=== PATIENT | female | born 1995 ===

== ENCOUNTER 2023-04-11 09:11 | Emergency (ER) | payer OTHER, SELFPAY ==
--- NOTE | ~2023-04-11 | XR_ITS ---
EXAMINATION: XR SHOULDER, LEFT CLINICAL INFORMATION: Trauma COMPARISON: None available. TECHNIQUE: AP external rotation, Grashey, scapular Y, and axillary views of the left shoulder. FINDINGS: There is no evidence of acute fracture or dislocation of the left shoulder. Glenohumeral joint appears unremarkable. No calcific tendinitis. Acromioclavicular joint appears unremarkable. No widening of the coracoclavicular space is seen. XR/XR shoulder LT min 2V IMPRESSION: No bony abnormality of the left shoulder identified.
[2023-04-11 09:26] VITALS: BP 158/96; PULSE 79; RESP 18; TEMP 36.3; O2SAT 97; BMI 46.3
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
--- OUTSIDE RECORDS SUMMARY | 2023-04-11 09:53 | XMS_ITS | Continuity of Care Document ---
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 Discharge Disposition: A-D/C Home Attending Physician: Constantino Gilmore MD Admitting Physician: Constantino Gilmore MD Referring Physician: Not on Staff, Referring MD Allergies, Adverse Reactions, Alerts Substance Reaction Severity Status amoxicillin Active Shrimp Active Medications ibuprofen 600 mg oral tablet 600 mg, 1, tablet, By Mouth, Every 6 hours, # 30 tablet, Refills 0, Tot. Refills 0, Maintenance, 08/03/20 14:31:00 EDT, Route to Pharmacy Electronically, [id number] Start Date: 08/03/20 Status: Ordered Results Radiology Reports * Exam Date Time Procedure Performing Provider Status 08/03/20 2:04 PM Hand Min 3 Views Right Arash Almendarez; Auth (Verified) Notes: (Hand Min 3 Views Right) Reason For Exam: Pain RESULT: Hand Min 3 Views Right PROCEDURE: Hand Min 3 Views Right CLINICAL INDICATION: 24 years old Female with hand pain since this morning. No trauma. Sent here from work to get checked out . COMPARISONS: None. FINDINGS: Bones and joints: No fracture or dislocation. Joint spaces are normal. Soft Tissues: Regional soft tissues are unremarkable. No evidence of radiopaque foreign body. IMPRESSION: 1. No evidence of acute bony injuries. Thank you for allowing me to participate in the care of this patient. WSN: [id number] Ordering Physician: Tabby Nunez Dictated By: Valarie Ibarra MD Dictated Date/Time: 08/03/20 2:10 pm Reviewed By: Valarie Ibarra MD Signed By: Valarie Ibarra MD Signed Date/Time: 08/03/20 2:10 pm Transcribed By: CHRISTELLE Transcribed Date/Time: 08/03/20 2:06 pm Vital Signs Most recent to oldest [Reference Range]: 1 2 Oxygen Saturation [94-100 %] 100 % (08/03/20 1:25 PM) 99 % (08/03/20 11:36 AM) Pulse Rate [55-90 bpm] 84 bpm (08/03/20 1:25 PM) 71 bpm (08/03/20 11:36 AM) Blood Pressure [90-138/55-84 mm Hg] 125/ 75mm Hg (08/03/20 1:25 PM) 139/87mm Hg *H* (08/03/20 11:36 AM) Respiratory Rate [16-30 br/min] 19 br/mi n (08/03/20 1:25 PM) 18 br/min (08/03/20 11:36 AM) Temperature [96.8-100.4 DegF] 98.5 DegF (08/03/20 11:36 AM) Mode of Delivery (Oxygen) Room air (08/03/20 1:25 PM) Room air (08/03/20 11:36 AM) Blood pressure sites Arm, left (08/03/20 1:25 PM) Arm, right (08/03/20 11:36 AM) Temperature Route Oral (08/03/20 11:36 AM) Social History Social History Type Response Smoking Status Never smoker entered on: 01/11/18 Sex
== END 2023-04-11 10:25 | disposition home or self-care (01) ==
PROVIDERS: Emergency Provider Student in an Organized Health Care Education/Training Program
DX: S39.012A Strain of muscle, fascia and tendon of lower back, initial encounter (principal); S40.012A Contusion of left shoulder, initial encounter; M25.512 Pain in left shoulder; V43.52XA Car driver injured in collision with other type car in traffic accident, initial encounter; Y93.9 Activity, unspecified; Y92.410 Unspecified street and highway as the place of occurrence of the external cause; Y99.9 Unspecified external cause status
CPT/HCPCS: 73030; 99282; 99283

== ENCOUNTER 2023-08-09 18:56 | Emergency (ER) | payer OTHER, SELFPAY ==
--- NOTE | ~2023-08-09 | CT_ITS ---
EXAMINATION: CT ABDOMEN AND PELVIS WITHOUT CONTRAST CLINICAL INFORMATION: Flank pain. History of kidney stones. COMPARISON: None available. TECHNIQUE: Multidetector volumetric imaging was performed from the superior aspect of the liver through the pubic symphysis. Sagittal and coronal reformatted images were obtained on the technologist's workstation. This CT examination was performed using dose optimization techniques as appropriate, variously including the following: *Automated exposure control *Adjustment of mA and/or kV according to patient size (this includes techniques or standardized protocols for targeted exams where dose is matched to indication/reason for exam; i.e. extremities or head) *Use of iterative reconstruction technique DLP: 1358 mGy-cm FINDINGS: LUNG BASES: Minimal atelectatic changes seen right middle lobe and lingula. Heart size is normal. LIVER, GALLBLADDER, AND BILIARY TREE: The liver is normal in size, shape, and attenuation. No focal hepatic lesion or biliary ductal dilatation is present. The gallbladder is unremarkable with no evidence of radiopaque gallstones, gallbladder wall thickening, or obvious pericholecystic inflammatory changes. PANCREAS: Unremarkable. SPLEEN: Unremarkable. ADRENAL GLANDS: Unremarkable. KIDNEYS AND URETERS: The kidneys are normal in size, shape, and attenuation. No hydronephrosis, hydroureter, or calculi seen. No perinephric stranding. There is a 1.9 cm hypodense lesion upper pole left kidney measuring -89 Hounsfield units likely angiomyolipoma. 2 small calcifications or calculi seen in the upper pole left kidney. There is 2 mm radiopaque calculi in proximal ureter right kidney with minimal hydronephrosis. 2 mm radiopaque nonobstructing calculi seen in lower pole right kidney. The right kidney measures 14 cm in length and left kidney measures 11 cm in length. BLADDER: Bladder is nondistended and appears unremarkable.. GASTROINTESTINAL TRACT: The stomach is nondistended and appears unremarkable. The small bowel loops are normal caliber. Minimal stool seen in the right colon. There is no distention. There is nonspecific haziness in the mid mesentery. There are numerous small perivascular mesenteric lymph nodes. ABDOMINAL WALL: No significant hernia is appreciated. LYMPH NODES: There are numerous small bowel mesentery, para-aortic retroperitoneal lymph nodes. Some of the lymph nodes are abnormal size measuring 1.8 x 8 mm on axial slice 42/3. VASCULAR: Unremarkable. PELVIC VISCERA: The uterus is anteverted and appears unremarkable. There is a 3.8 x 3.9 cm simple cyst left ovary. No follow-up needed. There is no free fluid. OSSEOUS STRUCTURES: No aggressive lytic or sclerotic process seen CT/CT abdomen pelvis wo IV con IMPRESSION: 1. 2 mm obstructive radiopaque calculi proximal right ureter with minimal hydronephrosis. 2. There are bilateral nonobstructive radiopaque renal calculi. 3. 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 4. There are numerous small lymph nodes in the small bowel mesentery, para-aortic in retroperitoneum and in the mesentery. There is nonspecific haziness in the mid mesentery. 5. Simple left ovarian cyst. No follow-up needed. Fleischner guidelines were followed.
[2023-08-09 19:34] VITALS: BP 156/92; PULSE 100; RESP 18; TEMP 37; O2SAT 96; BMI 49.8
[2023-08-09 20:16] LABS: MANUAL DIFF FLAG NO
[2023-08-09 20:19] LABS: Basophils Percent Auto 0.3 % (0-2); Eosinophils Absolute Auto 0.3 X10*3/uL (0.0-0.4); Hematocrit 36.9 % (37.0-47.0); Hemoglobin 10.8 g/dl (12.0-16.0); Imm Gran Abs Auto 0.12 X10*3/uL (0.00-0.03); Lymphocytes Absolute Auto 1.3 X10*3/uL (1.2-4.9); Lymphocytes Percent Auto 10.2 % (20-40); Mean Corpuscular HGB Conc 29.3 g/dl (31.0-35.0); Mean Corpuscular Hemoglobin 19.6 pg (27.0-33.0); Mean Corpuscular Volume 66.8 fL (80.0-98.0); Mean Platelet Volume 8.6 fL (9.4-12.3); Monocytes Absolute Auto 0.7 X10*3/uL (0.1-1.2); Neutrophils Absolute Auto 9.9 x10*3/uL (2.0-8.3); Neutrophils Percent Auto 80.5 % (45-73); Platelet Count 505 X10*3/uL (160-400); Red Blood Count 5.52 X10*6/uL (4.20-5.50); White Blood Count 12.3 X10*3/uL (4.8-10.8)
--- NOTE | 2023-08-09 20:28 | ED.GENADULT ---
HPI - General Adult General Chief complaint: Abdominal Pain Stated complaint: Rightside pain/nausea/ light headed Time Seen by Provider: 08/09/23 20:12 Source: patient, RN notes reviewed and old records reviewed Mode of arrival: ambulatory Limitations: no limitations History of Present Illness HPI narrative: 27-year-old female presents for evaluation of right flank pain. Patient reports that her symptoms started around 8:00 a.m. this morning. She reports the pain is intermittent, radiates from right flank to her right lower abdomen Currently her pain is mild, 3/10 but does become a 10/10 at its worst. She reports that she was diagnosed with kidney stones about 7 months ago and this feels similar She reports that she took a test at home 3 days ago which was negative Denies any burning with urination And no fevers or chills The patient took some Tylenol prior to arrival She reports 1 episode of vomiting in the waiting room Related Data Previous Rx's Medication Instructions Recorded methocarbamol 750 mg tablet 750 mg PO TID PRN muscle spasm #20 04/11/23 tabs naproxen 500 mg tablet 500 mg PO BID PRN pain #20 tabs 04/11/23 cefpodoxime 200 mg tablet 200 mg PO BID #6 tabs 08/09/23 ondansetron 4 mg disintegrating 4 mg PO Q8H PRN nausea and 08/09/23 tablet vomiting #20 tabs tamsulosin 0.4 mg capsule (Flomax) 0.4 mg PO DAILY #7 caps 08/09/23 tramadol 50 mg tablet 50 mg PO TID PRN severe pain 08/09/23 (scale score 7-10) #12 tabs Allergies Allergy/AdvReac Type Severity Reaction Status Date / Time amoxicillin [AMOXICILLIN] Allergy Unknown SWELLING Verified 08/09/23 19:34 shrimp [SHRIMP] Allergy Unknown ANAPHYLAXIS Verified 08/09/23 19:34 Review of Systems Constitutional: Constitutional: Denies chills and Denies fever(s) Cardiovascular: Cardiovascular: Denies chest pain and Denies dyspnea Respiratory: Respiratory: Denies cough and Denies dyspnea Gastrointestinal: Gastrointestinal: Reports abdominal pain, Reports nausea and Reports vomiting Genitourinary: Genitourinary: Denies difficulty voiding Musculoskeletal: Musculoskeletal: Reports back pain Integumentary/Breasts: Skin/Breast: Denies rash PMFSH Social History Social History Alcohol intake: current Alcohol intake frequency: holidays/special occasions only Smoked in Last 30 Days: Yes Use of substances other than those prescribed or required for medical reasons: No Advance Directives: No Advance Directives Information Provided: No Patient : No Physical Exam ED Vital Signs: Vital Signs - 24 hr 08/09/23 19:34 08/09/23 22:21 Temperature 98.6 F Pulse Rate 100 91 Respiratory Rate 18 Blood Pressure 156/92 H 109/55 L Pulse Oximetry 96 96 Oxygen Delivery Method Room Air Room Air BMI result Body Mass Index 49.8 Const General: healthy appearing, comfortable, no acute distress, alert and awake Nutritional Appearance: well nourished Orientation/consciousness: patient oriented x3 HENMT Head: Yes normocephalic and Yes atraumatic Eyes Eyelids: Yes eyelids normal Conjunctivae: conjunctivae normal Sclerae: sclerae normal Corneas: corneas normal Pupils: Equal, round and reactive pupils present EOM: EOMs intact bilaterally Neck Neck: Yes full ROM Resp Effort & Inspection: normal respiratory effort, able to speak in complete sentences and not labored GI Inspection: No distended Palpation (GI): Soft to palpation, not firm, nontender, no guarding and not rigid General: Yes CVA tenderness (On right only) Back/Spine/Pelvis Back: CVA tenderness (On right only) Skin General skin exam: elasticity normal Neuro General: patient oriented x3 Cranial nerves: Yes Equal, round and reactive pupils present and Yes Bilaterally intact EOM present Cognition (Neuro): normal cognition Extrem Other: Moving all extremities well without any obvious deformities Course Reevaluation(s) Reevaluation #1: Patient's CT scan shows a 2 mm proximal ureter stone. Normal renal function. Patient has a mild leukocytosis which is likely reactive. Still awaiting UA Time: 23:22 Reevaluation #2: Patient's urine shows over 50 white cells with 1+ bacteria and moderate esterase, will cover with cefpodoxime Time: 23:28 Medications Administered Discontinued Medications Generic Name Dose Route Start Last Admin Trade Name Freq PRN Reason Stop Dose Admin Sodium Chloride 1,000 mls @ 999 mls/hr 08/09/23 21:00 08/09/23 22:29 Ns IV 08/09/23 22:00 Infused .Q1H1M NATALIE Infusion Ketorolac Tromethamine 30 mg 08/09/23 20:49 08/09/23 20:56 Ketorolac Tromethamine 30 Mg/Ml Vial IVPUSH 08/09/23 20:50 30 mg ONCE ONE Administration Ondansetron HCl 4 mg 08/09/23 20:49 08/09/23 20:56 Ondansetron Hcl 4 Mg/2 Ml Vial IVPUSH 08/09/23 20:50 4 mg ONCE ONE Administration Medical Decision Making Medical Decision Making [facility] Narrative: 27-year-old female presents for evaluation of right flank pain that started this morning. The pain waxes and wanes, history exam consistent with obstructive uropathy. Plan for labs, UA, CT scan the abdomen pelvis. Patient declines analgesia at this time. Her vital signs are stable Differential Diagnosis Differential Diagnoses: The differential diagnosis associated with the presentation includes Obstructive uropathy Pyelonephritis UTI Muscle strain Constipation Lab Data [facility] Lab Attestation statement: I reviewed the patient's lab results. Mild leukocytosis to 12.3. Mild chronic anemia with a hemoglobin of 10.8 and hematocrit of 36.9. Platelets elevated to 505k. No electrolyte abnormalities. Normal renal function. Mild transaminitis. Unclear significance at this time 08/09/23 20:12 08/09/23 20:12 Labs: Lab Results 08/09/23 08/09/23 Range/Units 20:12 23:13 WBC 12.3 H (4.8-10.8) X10*3/uL RBC 5.52 H (4.20-5.50) X10*6/uL Hgb 10.8 L (12.0-16.0) g/dl Hct 36.9 L (37.0-47.0) % MCV 66.8 L (80.0-98.0) fL MCH 19.6 L (27.0-33.0) pg MCHC 29.3 L (31.0-35.0) g/dl RDW 19.0 H (11.0-16.0) % Plt Count 505 H (160-400) X10*3/uL MPV 8.6 L (9.4-12.3) fL Immature Gran % (Auto) 1.0 H (0.0-0.4) % Neut % (Auto) 80.5 H (45-73) % Lymph % (Auto) 10.2 L (20-40) % Whiteside % (Auto) 6.0 (2-11) % Eos % (Auto) 2.0 (0-4) % Baso % (Auto) 0.3 (0-2) % Lymph # (Auto) 1.3 (1.2-4.9) X10*3/uL Whiteside # (Auto) 0.7 (0.1-1.2) X10*3/uL Eos # (Auto) 0.3 (0.0-0.4) X10*3/uL Baso # (Auto) 0.0 (0.0-0.2) X10*3/uL Abs Immat Gran (auto) 0.12 H (0.00-0.03) X10*3/uL Absolute Neuts (auto) 9.9 H (2.0-8.3) x10*3/uL Absolute Nucleated RBC 0.000 (0.0-0.012) X10*3/uL Nucleated RBC % (auto) 0.0 (0.0-0.2) /100WBC Sodium 139 (135-145) mmol/L Potassium 4.7 (3.3-5.1) mmol/L Chloride 105 (96-108) mmol/L Carbon Dioxide 24 (22-29) mmol/L Anion Gap 15 (12-20) BUN 15 (9-16) mg/dL Creatinine 1.30 (0.5-1.4) mg/dL Estim Creat Clear Calc 87.6 Estimated GFR 49 Random Glucose 150 H (60-115) mg/dL Calcium 9.6 (8.4-10.2) mg/dL Total Bilirubin 0.4 (0.0-1.0) mg/dL Direct Bilirubin 0.1 (0.0-0.5) mg/dL AST 43 H (5-31) U/L ALT 52 H (0-31) U/L Alkaline Phosphatase 87 (39-117) U/L Total Protein 8.2 H (6.5-8.0) g/dL Albumin 4.1 (3.5-5.0) g/dL Lipase 14 (8-78) U/L Beta HCG, Quant < 2 mIU/mL Urine Color Yellow Urine Appearance Cloudy Urine pH 6.5 (5.0-9.0) Ur Specific Gate 1.025 (1.005-1.025) Urine Protein 30 (1+) H (Neg-Trace) mg/dL Urine Glucose (UA) Negative (Negative) mg/dL Urine Ketones Negative (Negative) mg/dL Urine Blood Small (1+) H (Negative) Urine Nitrite Negative (Negative) Ur Leukocyte Esterase Moderate (2+) H (Negative) Urine RBC 11-20 H (0-2) /HPF Urine WBC >50 H (0-5) /HPF Ur Squamous Epith Cells 6-10 (0-2) /HPF Urine Bacteria 1+ (None Seen) Hyaline Casts 0-2 (0-2) /LPF Independent Interpretation I performed an independent interpretation of an: CT Scan (2 mm proximal ureter stone, mild hydronephrosis) Radiology Impression Discussion of test interpretation with radiology: I have reviewed the radiologist's reading. (3 mm obstructive uropathy in the proximal ureter with mild hydronephrosis) Discharge Plan Discharge Clinical Impression: Obstructive uropathy Patient Disposition: Home, Self-Care Instructions: Kidney Stones (ED) Additional Instructions: Your CT scan showed a very small kidney stone just outside your right kidney Is 2 mm and should therefore be able to pass on its own You may use Tylenol as needed for pain. You may use tramadol for more severe breakthrough pain This may make you sleepy, do not drink alcohol or drive after taking it Take Flomax daily Take the antibiotic as prescribed Return for new or worsening symptoms especially fever Prescriptions: New tamsulosin [Flomax] 0.4 mg capsule 0.4 mg PO DAILY Qty: 7 0RF tramadol 50 mg tablet 50 mg PO TID PRN (Reason: severe pain (scale score 7-10)) Qty: 12 0RF ondansetron 4 mg tablet,disintegrating 4 mg PO Q8H PRN (Reason: nausea and vomiting) Qty: 20 0RF cefpodoxime 200 mg tablet 200 mg PO BID Qty: 6 0RF Rx Instructions: must administer with a meal/food No Action naproxen 500 mg tablet 500 mg PO BID PRN (Reason: pain) Qty: 20 0RF methocarbamol 750 mg tablet 750 mg PO TID PRN (Reason: muscle spasm) Qty: 20 0RF
[2023-08-09 20:30] LABS: Alanine Aminotransferase 52 U/L (0-31); Albumin Level 4.1 g/dL (3.5-5.0); Alkaline Phosphatase 87 U/L (39-117); Anion Gap 15 (12-20); Aspartate Amino Transferase 43 U/L (5-31); Bilirubin Direct 0.1 mg/dL (0.0-0.5); Bilirubin Total 0.4 mg/dL (0.0-1.0); Blood Urea Nitrogen 15 mg/dL (9-16); Calcium 9.6 mg/dL (8.4-10.2); Carbon Dioxide 24 mmol/L (22-29); Chloride 105 mmol/L (96-108); Creatinine Clr Calc Pharmacy 87.6; Estimated Glomerular Filt Rate 49; Glucose Random 150 mg/dL (60-115); Lipase 14 U/L (8-78); Potassium 4.7 mmol/L (3.3-5.1); Sodium 139 mmol/L (135-145); Total Protein 8.2 g/dL (6.5-8.0)
[2023-08-09 20:44] LABS: HCG Quantitative < 2 mIU/mL
[2023-08-09] MEDS: ondansetron HCL 4 MG/2 ML VIAL IVPUSH (20:56)
[2023-08-09] MEDS: Ketorolac Tromethamine 30 MG/ML VIAL IVPUSH (20:56)
[2023-08-09] MEDS: 0.9 % Sodium Chloride 1,000 ML 999 ML IV (20:58)
[2023-08-09 22:21] VITALS: BP 109/55; PULSE 91; O2SAT 96
[2023-08-09 23:18] LABS: Appearance Urine Cloudy; Color Urine Yellow; Glucose Urine UA Negative (Negative); Leukocyte Esterase Urine Moderate (2+) (Negative); Nitrite Urine Negative (Negative); PH 6.5 (5.0-9.0); Specific Gravity - Urine 1.025 (1.005-1.025); UMIC TRIGGER UACC YES; Urine Blood Small (1+) (Negative); Urine Ketones Negative (Negative); Urine Protein 30 (1+) mg/dL (Neg-Trace)
[2023-08-09 23:23] LABS: Bacteria Urine 1+ (None Seen); Hyaline Casts Urine 0-2 /LPF (0-2); UACC Culture Trigger YES; WBC Urine >50 /HPF (0-5)
[2023-08-10 00:14] VITALS: BP 117/63; PULSE 87; RESP 16; TEMP 37; O2SAT 96
== END 2023-08-10 00:16 | disposition home or self-care (01) ==
PROVIDERS: Physician Assistant Medical; Emergency Provider Internal Medicine
DX: N13.2 Hydronephrosis with renal and ureteral calculous obstruction (principal); E66.9 Obesity, unspecified; Z68.42 Body mass index [BMI] 45.0-49.9, adult; Z79.899 Other long term (current) drug therapy
CPT/HCPCS: 36415; 74176; 80048; 80076; 81001; 83690; 84702; 85025; 87086; 87088; 87186; 96361; 96374; 96375; 99284; J1885; J2405

== ENCOUNTER 2023-09-30 00:02 | Emergency (ER) | payer OTHER, SELFPAY ==
--- NOTE | ~2023-09-30 | XR_ITS ---
EXAMINATION: XR CHEST CLINICAL INFORMATION: Cough. COMPARISON: Chest x-ray January 17, 2009. TECHNIQUE: Frontal view of the chest was obtained. 0018 hours FINDINGS: Subtle hazy airspace opacity in the mid right upper lung concerning for pneumonia. Linear streaky opacities at left lung base consistent with atelectasis. Lung volume is low. No pleural effusion. Cardiac and mediastinal contours are normal. Heart size normal. XR/XR chest 1V IMPRESSION: Subtle hazy airspace opacity in the mid right upper lung concerning for pneumonia.
[2023-09-30 00:03] VITALS: BP 146/96; PULSE 117; RESP 20; TEMP 36.6; O2SAT 94; BMI 51.7
[2023-09-30 00:59] LABS: IDNOW Serial# 58CA691E; Strep A Nucleic Acid Negative (Negative)
[2023-09-30 01:02] LABS: Alanine Aminotransferase 64 U/L (0-31); Albumin Level 3.8 g/dL (3.5-5.0); Alkaline Phosphatase 86 U/L (39-117); Anion Gap 15 (12-20); Aspartate Amino Transferase 54 U/L (5-31); Bilirubin Total 0.2 mg/dL (0.0-1.0); Blood Urea Nitrogen 13 mg/dL (9-16); Calcium 9.3 mg/dL (8.4-10.2); Carbon Dioxide 22 mmol/L (22-29); Chloride 105 mmol/L (96-108); Creatinine Clr Calc Pharmacy 113.3; Estimated Glomerular Filt Rate > 60; Glucose Random 205 mg/dL (60-115); Potassium 4.1 mmol/L (3.3-5.1); Sodium 138 mmol/L (135-145); Total Protein 7.9 g/dL (6.5-8.0)
[2023-09-30 01:07] LABS: IDNOW Serial# 16C4AD1C; Influenza A Negative (Negative); Influenza B2 Negative (Negative)
[2023-09-30 01:12] LABS: COVID-19 Test Negative (Negative); IDNOW Serial# 58CA691E
[2023-09-30 01:18] LABS: MANUAL DIFF FLAG NO
[2023-09-30 01:19] LABS: Basophils Absolute Auto 0.1 X10*3/uL (0.0-0.2); Basophils Percent Auto 0.7 % (0-2); Eosinophils Absolute Auto 0.7 X10*3/uL (0.0-0.4); Eosinophils Percent Auto 7.8 % (0-4); Hematocrit 35.7 % (37.0-47.0); Hemoglobin 10.4 g/dl (12.0-16.0); Imm Gran Abs Auto 0.14 X10*3/uL (0.00-0.03); Imm Gran Pct Auto 1.6 % (0.0-0.4); Lymphocytes Percent Auto 23.1 % (20-40); Mean Corpuscular HGB Conc 29.1 g/dl (31.0-35.0); Mean Corpuscular Hemoglobin 19.7 pg (27.0-33.0); Mean Corpuscular Volume 67.7 fL (80.0-98.0); Mean Platelet Volume 8.9 fL (9.4-12.3); Monocytes Absolute Auto 0.5 X10*3/uL (0.1-1.2); Monocytes Percent Auto 5.4 % (2-11); Neutrophils Absolute Auto 5.3 x10*3/uL (2.0-8.3); Neutrophils Percent Auto 61.4 % (45-73); Platelet Count 512 X10*3/uL (160-400); Red Blood Count 5.27 X10*6/uL (4.20-5.50); Red Cell Distribution Width 19.7 % (11.0-16.0); White Blood Count 8.7 X10*3/uL (4.8-10.8)
[2023-09-30] MEDS: Doxycycline Monohydrate 100 MG CAPSULE PO (01:25)
[2023-09-30 01:28] VITALS: O2SAT 97
[2023-09-30 01:32] VITALS: BP 139/88; PULSE 100; RESP 20; TEMP 36.8; O2SAT 95
[2023-09-30 01:46] LABS: Lactic Acid 1.9 mmol/L (0.5-2.0)
--- NOTE | 2023-09-30 01:58 | ED_ITS ---
HPI - General Adult General Chief complaint: Upper Respiratory Symptoms Stated complaint: Pneumonia? Time Seen by Provider: 09/30/23 01:58 EDT Source: patient Mode of arrival: ambulatory Limitations: no limitations History of Present Illness HPI narrative: Patient is a 28 year old assigned female at with no reported medical history presenting to the emergency department today with a cough and headache for 5 days. Patient states that over the last 5 days she has had a cough and a headache. Patient denies any dizziness, lightheadedness, abdominal pain, nausea, vomiting, fever, chills, blurry vision, double vision, loss of vision, chest pain, difficulty breathing, shortness of breath, back pain, night sweats, pain with urination, increased urinary frequency, increased urinary urgency, blood in her urine or stool, syncope or a near syncopal episode, recent trauma or falls, bowel incontinence, bladder incontinence, bowel retention, bladder retention, or any other complaints at this time. Onset (ago): day(s) (5) Severity: mild Severity scale (1-10): 3 Relieving factors: none Exacerbating factors: none Associated symptoms: cough Treatments prior to arrival: none Related Data Previous Rx's Medication Instructions Recorded methocarbamol 750 mg tablet 750 mg PO TID PRN muscle spasm #20 04/11/23 tabs naproxen 500 mg tablet 500 mg PO BID PRN pain #20 tabs 04/11/23 ondansetron 4 mg disintegrating 4 mg PO Q8H PRN nausea and 08/09/23 tablet vomiting #20 tabs tamsulosin 0.4 mg capsule (Flomax) 0.4 mg PO DAILY #7 caps 08/09/23 tramadol 50 mg tablet 50 mg PO TID PRN severe pain 08/09/23 (scale score 7-10) #12 tabs levofloxacin 750 mg tablet 750 mg PO DAILY 5 days #5 tabs 08/10/23 doxycycline hyclate 100 mg tablet 100 mg PO BID 7 days #14 tabs 09/30/23 Allergies Allergy/AdvReac Type Severity Reaction Status Date / Time amoxicillin [AMOXICILLIN] Allergy Unknown SWELLING Verified 09/30/23 00:06 shrimp [SHRIMP] Allergy Unknown ANAPHYLAXIS Verified 09/30/23 00:06 Review of Systems 2 Constitutional: Constitutional: Reports no additional constitutional complaints, Denies chills, Denies fever(s), Reports headache(s) and Denies night sweats Eyes: Eyes: Reports no additional eye complaints, Denies blurry vision, Denies change in vision, Denies diplopia, Denies eye discharge, Denies loss of vision and Denies eye pain ENT: Denies dizziness and Reports headache(s) Cardiovascular: Cardiovascular: Reports no additional cardiovascular complaints, Denies chest pain, Denies lightheadedness, Denies Loss of Consciousness and Denies dyspnea Respiratory: Respiratory: Reports no additional respiratory complaints, Reports cough and Denies dyspnea Gastrointestinal: Gastrointestinal: Reports no additional gastrointestinal complaints, Denies abdominal pain, Denies melena, Denies hematochezia, Denies change in bowel habits and Denies change in stool character Genitourinary: Genitourinary: Denies hematuria, Denies urinary frequency, Denies dysuria, Denies urinary incontinence, Denies urinary hesitancy and Denies urinary urgency Musculoskeletal: Musculoskeletal: Reports no additional musculoskeletal complaints, Denies numbness and Denies tingling Neurologic: Denies dizziness, Reports headache(s), Denies loss of vision, Denies numbness and Denies tingling Psychiatric: Psychiatric: Reports no additional psychiatric complaints Endocrine: Endocrine: Reports no additional endocrine complaints Hematologic/Lymphatic: Hematologic/Lymphatic: Reports no additional hematologic/lymphatic complaints Allergic/Immunologic: Allergic/Immunologic: Reports no additional allergic/immunologic complaints PMFSH Past Medical History Attestation statement: The following information was validated with the patient. Source: old records reviewed and nursing notes reviewed Social History Social History (Reviewed 09/30/23 @ 01:10 EST by HERMELINDO Farnsworth) Alcohol intake: current Alcohol intake frequency: holidays/special occasions only Advance Directives: No Advance Directives Information Provided: No Physical Exam ED Vital Signs: Vital Signs - 24 hr 09/30/23 00:03 Temperature 97.9 F Pulse Rate 117 H Respiratory Rate 20 Blood Pressure 146/96 H Pulse Oximetry 94 Oxygen Delivery Method Room Air BMI result Body Mass Index 51.7 Const General: cooperative, no acute distress, alert and awake Nutritional Appearance: well nourished Orientation/consciousness: patient oriented x3 Limitations: no limitations HENMT Head: Yes normal to inspection and Yes atraumatic Ears: hearing grossly normal bilaterally and external ears normal General nose exam: Normal external nose present, no nasal discharge noted and no epistaxis Face and sinus: Yes normal facial exam, No abrasion and No laceration Mouth: Normal oral and palatal mucosa present, no drooling and no muffled voice Eyes General: appearance normal, both eyes and all related structures Periorbital: periorbital findings normal Eyelids: Yes eyelids normal Conjunctivae: conjunctivae normal Pupils: Equal, round and reactive pupils present EOM: EOMs intact bilaterally Neck Neck: Yes normal visual inspection, Yes full ROM and Yes no lymphadenopathy Chest Chest palpation & inspection: normal inspection of the chest Resp Effort & Inspection: normal respiratory effort and able to speak in complete sentences Auscultation: clear to auscultation bilaterally Cardio Rate: regular rate Rhythm: regular rhythm GI Inspection: Yes normal to inspection Neuro General: patient oriented x3 and moves all extremities Cranial nerves: Yes Equal, round and reactive pupils present Cognition (Neuro): normal cognition Motor exam (neuro): 5/5 motor strength present throughout Sensory Exam: Normal double simultaneous stimulation for sensation Coordination: [id number] test normal Extrem General: Yes normal to inspection, Yes full ROM and Yes capillary refill normal Psych Appearance: grossly normal Mental Status: mental status grossly normal Affect: normal affect Attitude: cooperative Thought process: Normal thought process present Thought content: Normal thought content present Insight: Good insight present (Psych) Medical Decision Making Medical Decision Making MDM Narrative: Patient is a 28 year old assigned female at with no reported medical history presenting to the emergency department today with a cough and a headache. Patient's physical exam was unremarkable. Patient's blood work was unremarkable. Patient's chest x-ray showed evidence of an evolving PNA in the mid right upper lung. I explained my physical exam findings as well as all test results to the patient. I answered all questions asked by the patient. I stressed the importance of the patient taking her medication as prescribed. I stressed the importance of the patient following up with her primary care provider. I stressed the importance of the patient returning to the emergency department immediately if her symptoms were to worsen or if she were to develop any dizziness, shortness of breath, difficulty breathing, chest pain, blurry vision, loss of vision, nausea, vomiting, abdominal pain, fever, chills, back pain, or any other complaints. Patient verbalized agreement and understanding with this treatment plan and discharge. Differential Diagnosis Differential Diagnoses: The differential diagnosis associated with the presentation includes Viral illness PNA Admission/Observation Consideration of admission/observation: Escalation of care including admission/observation considered Patient would have been admitted to the hospital had her work up had any findings where hospital admission was appropriate and her clinical presentation warranted hospital admission. Lab Data MDM Lab Attestation statement: I reviewed the patient's lab results. My interpretation of these studies and their corresponding values is that they are grossly normal. 09/30/23 01:10 EST 09/30/23 01:10 EST Labs: Lab Results 09/30/23 09/30/23 09/30/23 Range/Units 00:09 00:10 01:10 EST WBC 8.7 (4.8-10.8) X10*3/uL RBC 5.27 (4.20-5.50) X10*6/uL Hgb 10.4 L (12.0-16.0) g/dl Hct 35.7 L (37.0-47.0) % MCV 67.7 L (80.0-98.0) fL MCH 19.7 L (27.0-33.0) pg MCHC 29.1 L (31.0-35.0) g/dl RDW 19.7 H (11.0-16.0) % Plt Count 512 H (160-400) X10*3/uL MPV 8.9 L (9.4-12.3) fL Immature Gran % (Auto) 1.6 H (0.0-0.4) % Neut % (Auto) 61.4 (45-73) % Lymph % (Auto) 23.1 (20-40) % [place] % (Auto) 5.4 (2-11) % Eos % (Auto) 7.8 H (0-4) % Baso % (Auto) 0.7 (0-2) % Lymph # (Auto) 2.0 (1.2-4.9) X10*3/uL [place] # (Auto) 0.5 (0.1-1.2) X10*3/uL Eos # (Auto) 0.7 H (0.0-0.4) X10*3/uL Baso # (Auto) 0.1 (0.0-0.2) X10*3/uL Abs Immat Gran (auto) 0.14 H (0.00-0.03) X10*3/uL Absolute Neuts (auto) 5.3 (2.0-8.3) x10*3/uL Absolute Nucleated RBC 0.000 (0.0-0.012) X10*3/uL Nucleated RBC % (auto) 0.0 (0.0-0.2) /100WBC Sodium 138 (135-145) mmol/L Potassium 4.1 (3.3-5.1) mmol/L Chloride 105 (96-108) mmol/L Carbon Dioxide 22 (22-29) mmol/L Anion Gap 15 (12-20) BUN 13 (9-16) mg/dL Creatinine 1.02 (0.5-1.4) mg/dL Estim Creat Clear Calc 113.3 Estimated GFR > 60 Random Glucose 205 H (60-115) mg/dL Calcium 9.3 (8.4-10.2) mg/dL Total Bilirubin 0.2 (0.0-1.0) mg/dL AST 54 H (5-31) U/L ALT 64 H (0-31) U/L Alkaline Phosphatase 86 (39-117) U/L Total Protein 7.9 (6.5-8.0) g/dL Albumin 3.8 (3.5-5.0) g/dL COVID-19 (COY) Negative (Negative) COVID-19 Clin Com See Note Influenza Type A (DERRICK) Negative (Negative) Influenza Type B (DERRICK) Negative (Negative) Influenza A & B Note See Note S. pyogenes GrpA DERRICK Negative (Negative) Independent Interpretation I performed an independent interpretation of an: Plain X-Ray Interpretation: My interpretation is in agreement with the radiologist's impression of this imaging study. - EXAMINATION: XR CHEST CLINICAL INFORMATION: Cough. COMPARISON: Chest x-ray January 17, 2009. TECHNIQUE: Frontal view of the chest was obtained. 0018 hours FINDINGS: Subtle hazy airspace opacity in the mid right upper lung concerning for pneumonia. Linear streaky opacities at left lung base consistent with atelectasis. Lung volume is low. No pleural effusion. Cardiac and mediastinal contours are normal. Heart size normal. XR/XR chest 1V IMPRESSION: Subtle hazy airspace opacity in the mid right upper lung concerning for pneumonia. Dictated By: Nilay Taylor MD Signed By: Electronically signed by Nilay Taylor MD 09/30/23 0035 Radiology Impression Discussion of test interpretation with radiology: I have reviewed the radiologist's reading. Prescription Management I considered prescription management with: Antibiotic (patient prescribed an antibiotic.) Discharge Plan Discharge Clinical Impression: Pneumonia Patient Disposition: Home, Self-Care Instructions: Community Acquired Pneumonia (DC) Additional Instructions: Follow up with your primary care provider. Return to the emergency department immediately if your symptoms worsen or if you develop any dizziness, shortness of breath, difficulty breathing, chest pain, blurry vision, loss of vision, nausea, vomiting, abdominal pain, fever, chills, back pain, or any other complaints. Prescriptions: New doxycycline hyclate 100 mg tablet 100 mg PO BID 7 Days Qty: 14 0RF No Action naproxen 500 mg tablet 500 mg PO BID PRN (Reason: pain) Qty: 20 0RF methocarbamol 750 mg tablet 750 mg PO TID PRN (Reason: muscle spasm) Qty: 20 0RF tamsulosin [Flomax] 0.4 mg capsule 0.4 mg PO DAILY Qty: 7 0RF tramadol 50 mg tablet 50 mg PO TID PRN (Reason: severe pain (scale score 7-10)) Qty: 12 0RF ondansetron 4 mg tablet,disintegrating 4 mg PO Q8H PRN (Reason: nausea and vomiting) Qty: 20 0RF levofloxacin 750 mg tablet 750 mg PO DAILY 5 Days Qty: 5 0RF Referrals: [facility] Family Medicine [Provider Group] (Call to establish and follow up with a primary care provider. If you already have a primary care provider. ) [facility] [Provider Group] (Call to establish and follow up with a primary care provider. If you already have a primary care provider. ) [facility] [Provider Group] (Call to establish and follow up with a primary care provider. If you already have a primary care provider. ) Stand Alone Forms: Work/School Release Print Language: Spanish
== END 2023-09-30 01:34 | disposition home or self-care (01) ==
PROVIDERS: Emergency Provider Emergency Medicine
DX: J18.9 Pneumonia, unspecified organism (principal); R51.9 Headache, unspecified; R05.9 Cough, unspecified; Z11.52 Encounter for screening for COVID-19
CPT/HCPCS: 36415; 71045; 80053; 83605; 85025; 87040; 87502; 87635; 87651; 99284

== ENCOUNTER 2023-10-16 00:55 | Emergency (ER) | payer OTHER, SELFPAY ==
--- NOTE | ~2023-10-16 | CT_ITS ---
EXAMINATION: CT CHEST WITHOUT CONTRAST CLINICAL INFORMATION: Question infiltrate in the right lung COMPARISON: Chest x-ray from the same day TECHNIQUE: Multidetector volumetric CT imaging of the chest was done. Axial MIP volume rendering provided. Sagittal and coronal reformatted images were obtained. This CT examination was performed using dose optimization techniques as appropriate, variously including the following: *Automated exposure control *Adjustment of mA and/or kV according to patient size (this includes techniques or standardized protocols for targeted exams where dose is matched to indication/reason for exam; i.e. extremities or head) *Use of iterative reconstruction technique DLP: 549 mGy-cm FINDINGS: LUNGS: There are a few scattered patchy areas of mild groundglass opacity with associated tree-in-bud type nodularity bilaterally, involving the bilateral upper lobes and right middle lobe. Appearance favors an infectious/inflammatory etiology. MEDIASTINUM: The visualized thyroid gland is unremarkable. Mild residual thymic tissue in the anterior mediastinum. Scattered mediastinal lymph nodes measuring up to the upper limits of normal in size and the right paratracheal region, which may be reactive. Cardiac size is within normal limits; no pericardial effusion. CORONARY ARTERY CALCIFICATION: None visualized on this study. PLEURA: There is no pleural effusion. No pleural mass or thickening. AXILLA: No lymphadenopathy. UPPER ABDOMEN: Unremarkable. OSSEOUS STRUCTURES: Unremarkable. CT/CT chest wo IV con IMPRESSION: 1. Few scattered patchy areas of mild groundglass opacity with associated tree-in-bud type nodularity bilaterally, favoring an infectious/inflammatory etiology. 2. Scattered mediastinal lymph nodes measuring up to the upper limits of normal in size, which may be reactive.
--- NOTE | ~2023-10-16 | XR_ITS ---
EXAMINATION: XR CHEST CLINICAL INFORMATION: Cough, shortness of breath COMPARISON: 09/30/2023 TECHNIQUE: 2 views of the chest were obtained. FINDINGS: Lung volumes are symmetric. There is suggestion of subtle opacity in the right upper lung, similar to prior. No evidence of pneumothorax, pleural effusion, or pulmonary edema. The cardiomediastinal contour is unremarkable. No acute osseous findings are seen. XR/XR chest 2V IMPRESSION: Suggestion of subtle opacity in the right upper lung, similar to 09/30/2023 and concerning for mild pneumonia in the proper clinical setting. Radiographic followup after treatment/resolution of symptoms is recommended. No additional acute findings identified.
[2023-10-16 00:59] VITALS: BP 162/95; PULSE 107; RESP 20; TEMP 37; O2SAT 95; BMI 50.8
[2023-10-16 02:05] LABS: MANUAL DIFF FLAG NO
[2023-10-16 02:06] LABS: Basophils Percent Auto 0.4 % (0-2); Eosinophils Absolute Auto 0.8 X10*3/uL (0.0-0.4); Eosinophils Percent Auto 8.9 % (0-4); Hemoglobin 9.7 g/dl (12.0-16.0); Imm Gran Abs Auto 0.09 X10*3/uL (0.00-0.03); Lymphocytes Percent Auto 21.4 % (20-40); Mean Corpuscular HGB Conc 28.5 g/dl (31.0-35.0); Mean Corpuscular Hemoglobin 19.8 pg (27.0-33.0); Mean Corpuscular Volume 69.2 fL (80.0-98.0); Mean Platelet Volume 8.8 fL (9.4-12.3); Monocytes Absolute Auto 0.5 X10*3/uL (0.1-1.2); Monocytes Percent Auto 5.4 % (2-11); Neutrophils Absolute Auto 5.8 x10*3/uL (2.0-8.3); Neutrophils Percent Auto 62.9 % (45-73); Platelet Count 501 X10*3/uL (160-400); Red Blood Count 4.91 X10*6/uL (4.20-5.50); Red Cell Distribution Width 18.8 % (11.0-16.0); White Blood Count 9.2 X10*3/uL (4.8-10.8)
[2023-10-16 02:16] LABS: Lactic Acid 1.4 mmol/L (0.5-2.0)
[2023-10-16 02:20] LABS: Anion Gap 10 (12-20); Blood Urea Nitrogen 9 mg/dL (9-16); Carbon Dioxide 25 mmol/L (22-29); Chloride 105 mmol/L (96-108); Creatinine Clr Calc Pharmacy 152.5; Estimated Glomerular Filt Rate > 60; Glucose Random 155 mg/dL (60-115); Potassium 3.8 mmol/L (3.3-5.1); Sodium 136 mmol/L (135-145)
[2023-10-16 02:27] VITALS: PULSE 75; O2SAT 98
--- NOTE | 2023-10-16 02:31 | PC.NURSE ---
pt from home. a&ox4, respirations even and unlabored. pt reports increasing chest pain with cough and wheezing. pt reports having pneumonia last week and finishing a course of antibiotics and reports no relief. pt has notable expiratory wheezing bilaterally. pt has productive cough. pt normal sinus on tele 93-95. iv established and labs obtained at this time.
--- NOTE | 2023-10-16 02:34 | ED_ITS ---
HPI - URI/Sore Throat General Chief Complaint: Upper Respiratory Symptoms Stated Complaint: Cough/Sob -?Pneumonia Time Seen by Provider: 10/16/23 01:44 History of Present Illness HPI Narrative: Patient is a 28-year-old female presents today with having coughing congestion upper respiratory symptoms. Patient was evaluated on the for almost similar symptoms was given a course of doxycycline for 1 week. Patient claims compliance with the medication symptom has been improving in the last 2 days patient started having coughing again upper respiratory symptoms generalized malaise weakness. Patient is from home. No diaphoresis. No abdominal pain. Does not think she is . No abdominal pain. Related Data Previous Rx's Medication Instructions Recorded methocarbamol 750 mg tablet 750 mg PO TID PRN muscle spasm #20 04/11/23 tabs naproxen 500 mg tablet 500 mg PO BID PRN pain #20 tabs 04/11/23 ondansetron 4 mg disintegrating 4 mg PO Q8H PRN nausea and 08/09/23 tablet vomiting #20 tabs tamsulosin 0.4 mg capsule (Flomax) 0.4 mg PO DAILY #7 caps 08/09/23 tramadol 50 mg tablet 50 mg PO TID PRN severe pain 08/09/23 (scale score 7-10) #12 tabs levofloxacin 750 mg tablet 750 mg PO DAILY 5 days #5 tabs 08/10/23 benzonatate 100 mg capsule 100 mg PO TID PRN cough #14 caps 09/30/23 doxycycline hyclate 100 mg tablet 100 mg PO BID 7 days #14 tabs 09/30/23 levofloxacin 500 mg tablet 500 mg PO DAILY 7 days #7 tabs 10/16/23 Allergies Allergy/AdvReac Type Severity Reaction Status Date / Time amoxicillin [AMOXICILLIN] Allergy Unknown SWELLING Verified 09/30/23 00:06 shrimp [SHRIMP] Allergy Unknown ANAPHYLAXIS Verified 09/30/23 00:06 Penicillins Allergy Swelling Verified 10/16/23 00:59 Review of Systems 2 Review of Systems: Positive coughing congestion upper respiratory symptoms Yes all other systems are reviewed and are [facility] Social History Social History Alcohol intake: current Alcohol intake frequency: holidays/special occasions only Alcohol type: wine and hard liquor Smoked in Last 30 Days: No Use of substances other than those prescribed or required for medical reasons: No Advance Directives: No Advance Directives Information Provided: Yes Patient : No Physical Exam 2 Vital Signs: Vital Signs: Last Vital Signs Temp 98.6 F 10/16/23 00:59 Pulse 75 10/16/23 02:27 Resp 20 10/16/23 00:59 BP 162/95 H 10/16/23 00:59 Pulse Ox 98 10/16/23 02:27 O2 Del Method Room Air 10/16/23 02:27 BMI result Body Mass Index 50.8 Appearance: Alert. Oriented X3. No acute distress. Eyes: Pupils equal, round and reactive to light. ENT: Pharynx normal. Neck: Normal inspection. Neck supple. No lymph nodes noted. No crepitus CVS: Normal heart rate and rhythm. Pulses normal. Normal S1 and S2 Respiratory: No respiratory distress. Breath sounds normal. No Wheezing. No rales Abdomen: Soft and nontender. No rigidity. No distention. good BS x4 Skin: Skin warm and dry. Normal skin color. Normal skin turgor. Extremities: No lower extremity edema. Neurovascular intact to all extremities. No Lacerations. No Rash Neuro: Oriented X 3. No motor deficit. No sensory deficit. Moving all extermities. No slurred speech Medical Decision Making Medical Decision Making MDM Narrative: Positive coughing upper respiratory symptoms generalized malaise. History of something similar. Patient's chest x-ray again showed a small infiltrate in the right upper lobe. Patient oxygenation is normal no evidence for hypoxia she is 20 years old she has no significant past medical history her BUN creatinine was normal. CT scan of the chest was done as patient had persistent coughing weakness. X-ray not improving. It shows inflammatory changes suggestive of pneumonia. Patient was given doxy during the last visit about 10 days ago. Will start patient on Levaquin for 7 days. Close follow-up on an outpatient basis. In stable condition. patient is flu RSV COVID all negative. Lactate is normal there is no evidence for severe sepsis. Patient's flu RSV COVID were all negative. Differential Diagnosis Differential Diagnoses: The differential diagnosis associated with the presentation includes Admission/Observation Consideration of admission/observation: Escalation of care including admission/observation considered Lab Data [facility] Lab Attestation statement: I reviewed the patient's lab results. 10/16/23 01:58 10/16/23 01:58 Labs: Lab Results 10/16/23 Range/Units 01:58 WBC 9.2 (4.8-10.8) X10*3/uL RBC 4.91 (4.20-5.50) X10*6/uL Hgb 9.7 L (12.0-16.0) g/dl Hct 34.0 L (37.0-47.0) % MCV 69.2 L (80.0-98.0) fL MCH 19.8 L (27.0-33.0) pg MCHC 28.5 L (31.0-35.0) g/dl RDW 18.8 H (11.0-16.0) % Plt Count 501 H (160-400) X10*3/uL MPV 8.8 L (9.4-12.3) fL Immature Gran % (Auto) 1.0 H (0.0-0.4) % Neut % (Auto) 62.9 (45-73) % Lymph % (Auto) 21.4 (20-40) % [place] % (Auto) 5.4 (2-11) % Eos % (Auto) 8.9 H (0-4) % Baso % (Auto) 0.4 (0-2) % Lymph # (Auto) 2.0 (1.2-4.9) X10*3/uL [place] # (Auto) 0.5 (0.1-1.2) X10*3/uL Eos # (Auto) 0.8 H (0.0-0.4) X10*3/uL Baso # (Auto) 0.0 (0.0-0.2) X10*3/uL Abs Immat Gran (auto) 0.09 H (0.00-0.03) X10*3/uL Absolute Neuts (auto) 5.8 (2.0-8.3) x10*3/uL Absolute Nucleated RBC 0.000 (0.0-0.012) X10*3/uL Nucleated RBC % (auto) 0.0 (0.0-0.2) /100WBC Sodium 136 (135-145) mmol/L Potassium 3.8 (3.3-5.1) mmol/L Chloride 105 (96-108) mmol/L Carbon Dioxide 25 (22-29) mmol/L Anion Gap 10 L (12-20) BUN 9 (9-16) mg/dL Creatinine 0.75 (0.5-1.4) mg/dL Estim Creat Clear Calc 152.5 Estimated GFR > 60 Random Glucose 155 H (60-115) mg/dL Lactic Acid 1.4 (0.5-2.0) mmol/L Calcium 9.0 (8.4-10.2) mg/dL Beta HCG, Quant < 2 mIU/mL Influenza Type A (PCR) NEGATIVE (Negative) Influenza Type B (PCR) NEGATIVE (Negative) RSV RNA Qual (PCR) NEGATIVE (Negative) SARS-CoV-2 RNA (RT-PCR) NEGATIVE (Negative) Independent Interpretation I performed an independent interpretation of an: Plain X-Ray ( Question infiltrate in the right upper lobe) and CT Scan Interpretation: no pneumothorax no rib fractures Radiology Impression Discussion of test interpretation with radiology: I have reviewed the radiologist's reading. External Record Review previous ED records reviewed Prescription Management I considered prescription management with: Antiviral not needed but will need to his place patient on antibiotics. Chronic Conditions History of pneumonia Discharge Plan Discharge Clinical Impression: Pneumonia Patient Disposition: Home, Self-Care Instructions: Community Acquired Pneumonia (DC) Prescriptions: New levofloxacin 500 mg tablet 500 mg PO DAILY 7 Days Qty: 7 0RF No Action doxycycline hyclate 100 mg tablet 100 mg PO BID 7 Days Qty: 14 0RF benzonatate 100 mg capsule 100 mg PO TID PRN (Reason: cough) Qty: 14 0RF naproxen 500 mg tablet 500 mg PO BID PRN (Reason: pain) Qty: 20 0RF methocarbamol 750 mg tablet 750 mg PO TID PRN (Reason: muscle spasm) Qty: 20 0RF tamsulosin [Flomax] 0.4 mg capsule 0.4 mg PO DAILY Qty: 7 0RF tramadol 50 mg tablet 50 mg PO TID PRN (Reason: severe pain (scale score 7-10)) Qty: 12 0RF ondansetron 4 mg tablet,disintegrating 4 mg PO Q8H PRN (Reason: nausea and vomiting) Qty: 20 0RF levofloxacin 750 mg tablet 750 mg PO DAILY 5 Days Qty: 5 0RF Referrals: Physician,None [Primary Care Provider] - 10/18/23
[2023-10-16 02:45] LABS: Influenza A PCR NEGATIVE (Negative); Influenza B PCR NEGATIVE (Negative); Resp Syncy Virus RNA Qual PCR NEGATIVE (Negative); SARS COV2 PCR INHOUSE NEGATIVE (Negative)
[2023-10-16 02:57] LABS: HCG Quantitative < 2 mIU/mL
[2023-10-16 04:34] VITALS: BP 158/88; PULSE 6; RESP 16; TEMP 36.7; O2SAT 93
[2023-10-16] MEDS: Acetaminophen 325 MG TABLET 650 MG PO (04:44)
[2023-10-16] MEDS: levoFLOXacin 500 MG TABLET PO (04:44)
== END 2023-10-16 04:53 | disposition home or self-care (01) ==
PROVIDERS: Emergency Provider Emergency Medicine Emergency Medical Services
DX: J18.9 Pneumonia, unspecified organism (principal); R05.9 Cough, unspecified; R06.02 Shortness of breath; Z20.822 Contact with and (suspected) exposure to COVID-19; Z20.828 Contact with and (suspected) exposure to other viral communicable diseases; Z79.899 Other long term (current) drug therapy
CPT/HCPCS: 0241U; 36415; 71046; 71250; 80048; 83605; 84702; 85025; 87040; 99284; 99285

== ENCOUNTER 2024-04-28 08:28 | Emergency (ER) | payer OTHER, SELFPAY ==
[2024-04-28 08:57] VITALS: BP 152/90; PULSE 103; RESP 18; TEMP 36.5; O2SAT 97; BMI 46.3
[2024-04-28] MEDS: Ibuprofen 600 MG TABLET PO (09:04)
[2024-04-28 09:19] LABS: MANUAL DIFF FLAG NO
[2024-04-28 09:21] LABS: Basophils Absolute Auto 0.1 X10*3/uL (0.0-0.2); Basophils Percent Auto 0.7 % (0-2); Eosinophils Absolute Auto 0.3 X10*3/uL (0.0-0.4); Eosinophils Percent Auto 3.5 % (0-4); Hematocrit 37.5 % (37.0-47.0); Imm Gran Abs Auto 0.09 X10*3/uL (0.00-0.03); Lymphocytes Percent Auto 22.3 % (20-40); Mean Corpuscular HGB Conc 29.3 g/dl (31.0-35.0); Mean Corpuscular Hemoglobin 19.6 pg (27.0-33.0); Mean Corpuscular Volume 66.7 fL (80.0-98.0); Mean Platelet Volume 8.5 fL (9.4-12.3); Monocytes Absolute Auto 0.5 X10*3/uL (0.1-1.2); Monocytes Percent Auto 5.4 % (2-11); Neutrophils Absolute Auto 5.9 x10*3/uL (2.0-8.3); Neutrophils Percent Auto 67.1 % (45-73); Platelet Count 509 X10*3/uL (160-400); Red Blood Count 5.62 X10*6/uL (4.20-5.50); Red Cell Distribution Width 19.4 % (11.0-16.0); White Blood Count 8.9 X10*3/uL (4.8-10.8)
[2024-04-28 09:34] LABS: Anion Gap 15 (12-20); Blood Urea Nitrogen 8 mg/dL (9-16); Carbon Dioxide 24 mmol/L (22-29); Chloride 104 mmol/L (96-108); Creatinine Clr Calc Pharmacy 127.2; Estimated Glomerular Filt Rate > 60; Glucose Random 142 mg/dL (60-115); Potassium 4.2 mmol/L (3.3-5.1); Sodium 139 mmol/L (135-145)
--- NOTE | 2024-04-28 10:45 | ED.GENADULT ---
HPI - General Adult General Chief complaint: Ear Problems Stated complaint: headache ear pain sore throat Time Seen by Provider: 04/28/24 10:43 Source: patient Mode of arrival: ambulatory Limitations: no limitations History of Present Illness ED Provider: Seth Nuñez PA-C HPI narrative: 28 old female presents ER for evaluation left-sided facial pain, left ear pain that started 3 days ago. Patient reports have pain that started under her left eye on Sunday night, the pain radiated to her cheek. She woke up today with an increase in swelling of the left cheek. She reports the pain radiates into the gum not the teeth. She denies any dental issues, broken teeth. she states she has been congested lately but thought it was due to the air conditioning and the plan. She denies any fever or chills. No vision changes. no Hearing loss or tinnitus. MD complaint: left sided facial pain Onset (ago): day(s) Location: face Radiation: distal Severity: moderate Quality: aching Pain Consistency: constant Relieving factors: rest Exacerbating factors: movement Associated symptoms: denies other symptoms Treatments prior to arrival: none Related Data Previous Rx's ?Medication ?Instructions ?Recorded methocarbamol 750 mg tablet 750 mg PO TID PRN muscle spasm #20 04/11/23 tabs naproxen 500 mg tablet 500 mg PO BID PRN pain #20 tabs 04/11/23 ondansetron 4 mg disintegrating 4 mg PO Q8H PRN nausea and 08/09/23 tablet vomiting #20 tabs tamsulosin 0.4 mg capsule (Flomax) 0.4 mg PO DAILY #7 caps 08/09/23 tramadol 50 mg tablet 50 mg PO TID PRN severe pain 08/09/23 (scale score 7-10) #12 tabs levofloxacin 750 mg tablet 750 mg PO DAILY 5 days #5 tabs 08/10/23 benzonatate 100 mg capsule 100 mg PO TID PRN cough #14 caps 09/30/23 doxycycline hyclate 100 mg tablet 100 mg PO BID 7 days #14 tabs 09/30/23 levofloxacin 500 mg tablet 500 mg PO DAILY 7 days #7 tabs 10/16/23 cetirizine 10 mg capsule (Zyrtec) 10 mg PO DAILY #14 caps 04/28/24 doxycycline hyclate 100 mg tablet 100 mg PO BID #20 tabs 04/28/24 ibuprofen 600 mg tablet 600 mg PO Q8H PRN pain #20 tabs 04/28/24 Allergies Allergy/AdvReac Type Severity Reaction Status Date / Time amoxicillin [AMOXICILLIN] Allergy Unknown SWELLING Verified 04/28/24 09:00 shrimp [SHRIMP] Allergy Unknown ANAPHYLAXIS Verified 04/28/24 09:00 Penicillins Allergy Swelling Verified 04/28/24 09:00 Review of Systems Review of Systems: Yes all other systems are reviewed and are negative [facility] Social History Social History Alcohol intake: current Alcohol intake frequency: holidays/special occasions only Alcohol type: wine and hard liquor Advance Directives: No Advance Directives Information Provided: No Do you have a plan to hurt others: No Plan Physical Exam ED Vital Signs: Vital Signs - 24 hr 04/28/24 08:57 04/28/24 12:47 Temperature 97.7 F 97.7 F Pulse Rate 103 H 91 Respiratory Rate 18 18 Blood Pressure 152/90 H 167/100 H Pulse Oximetry 97 97 Oxygen Delivery Method Room Air Room Air BMI result Body Mass Index 46.3 Appearance: Alert. Oriented X3. No acute distress. Head/face: normocephalic, atraumatic. Mild left maxillary swelling. Eyes: Pupils equal, round and reactive to light. No erythema of the periorbital structures. ENT: Pharynx normal. Left upper molars with fillings and Nabil. Nontender teeth. Left upper gums some tenderness without any swelling or fluctuance. No visible abscess.No tonsillar swelling or exudate. Normal inspection of the bilateral tympanic membranes. Neck: Normal inspection. Neck supple. No swelling CVS: Normal heart rate and rhythm. Pulses normal. Respiratory: No respiratory distress. Breath sounds normal. Skin: Skin warm and dry. Normal skin color. Normal skin turgor. No rashes. Extremities: No lower extremity edema. No joint swelling. Neuro/psych: Oriented X 3. No motor deficit. No sensory deficit. CN II-XII intact. Normal speech and cognition. Medications Administered Discontinued Medications Generic Name Dose Route Start Last Admin Trade Name Freq PRN Reason Stop Dose Admin Doxycycline Monohydrate 100 mg 04/28/24 12:32 04/28/24 12:45 Doxycycline Monohydrate 100 Mg Capsule PO 04/28/24 12:33 100 mg ONCE ONE Administration Ibuprofen 600 mg 04/28/24 09:01 04/28/24 09:04 Ibuprofen 600 Mg Tablet PO 04/28/24 09:02 600 mg ONCE ONE Administration Medical Decision Making Medical Decision Making [facility] Narrative: 28-year-old female presents to the ER for evaluation of left-sided facial pain, swelling of the maxillary that started 3 days ago and it has been slightly worsening. On examination she has tenderness of the left maxillary sinus. No obvious dental infection. Normal ear examination. No evidence of preseptal cellulitis no facial erythema. main with extraocular movements to suggest orbital cellulitis. She is nontoxic appearing. Lab work was performed that showed no leukocytosis. Her vital signs stable. Given her symptoms of congestion and sinus tenderness will treat for sinusitis with doxycycline. given return precautions. Stable for d/c home. Differential Diagnosis Differential Diagnoses: The differential diagnosis associated with the presentation includes acute sinusitis, dental abscess, pre cellulitis, orbital cellulitis Lab Data [facility] Lab Attestation statement: I reviewed the patient's lab results. 04/28/24 09:15 04/28/24 09:15 Labs: Lab Results 04/28/24 Range/Units 09:15 WBC 8.9 (4.8-10.8) X10*3/uL RBC 5.62 H (4.20-5.50) X10*6/uL Hgb 11.0 L (12.0-16.0) g/dl Hct 37.5 (37.0-47.0) % MCV 66.7 L (80.0-98.0) fL MCH 19.6 L (27.0-33.0) pg MCHC 29.3 L (31.0-35.0) g/dl RDW 19.4 H (11.0-16.0) % Plt Count 509 H (160-400) X10*3/uL MPV 8.5 L (9.4-12.3) fL Immature Gran % (Auto) 1.0 H (0.0-0.4) % Neut % (Auto) 67.1 (45-73) % Lymph % (Auto) 22.3 (20-40) % Hodgeman % (Auto) 5.4 (2-11) % Eos % (Auto) 3.5 (0-4) % Baso % (Auto) 0.7 (0-2) % Lymph # (Auto) 2.0 (1.2-4.9) X10*3/uL Hodgeman # (Auto) 0.5 (0.1-1.2) X10*3/uL Eos # (Auto) 0.3 (0.0-0.4) X10*3/uL Baso # (Auto) 0.1 (0.0-0.2) X10*3/uL Abs Immat Gran (auto) 0.09 H (0.00-0.03) X10*3/uL Absolute Neuts (auto) 5.9 (2.0-8.3) x10*3/uL Absolute Nucleated RBC 0.000 (0.0-0.012) X10*3/uL Nucleated RBC % (auto) 0.0 (0.0-0.2) /100WBC Sodium 139 (135-145) mmol/L Potassium 4.2 (3.3-5.1) mmol/L Chloride 104 (96-108) mmol/L Carbon Dioxide 24 (22-29) mmol/L Anion Gap 15 (12-20) BUN 8 L (9-16) mg/dL Creatinine 0.85 (0.5-1.4) mg/dL Estim Creat Clear Calc 127.2 Estimated GFR > 60 Random Glucose 142 H (60-115) mg/dL Calcium 10.0 D (8.4-10.2) mg/dL Tests considered The following testing was considered but not selected: considered CT of the facial bones to assess for dental abscess versus sinusitis Prescription Management I considered prescription management with: Pain Medication and Antibiotic Critical Care Time Critical Care Time Critical Care Time: No Discharge Plan Discharge Clinical Impression: Sinusitis Qualifiers: Sinusitis location: maxillary Chronicity: acute Recurrence: non-recurrent Qualified Code(s): J01.00 - Acute maxillary sinusitis, unspecified Patient Disposition: Home, Self-Care Instructions: Sinusitis (ED) Additional Instructions: Your labs were reassuring Your symptoms most likely related to a sinus infection. Take the prescribed antibiotics as directed, complete the entire course and do not miss any doses Start allergy medications as well. If you develop new or worsening symptoms call 911 or come back to the ER for further evaluation. Prescriptions: New doxycycline hyclate 100 mg tablet 100 mg PO BID Qty: 20 0RF ibuprofen 600 mg tablet 600 mg PO Q8H PRN (Reason: pain) Qty: 20 0RF Zyrtec 10 mg capsule 10 mg PO DAILY Qty: 14 0RF No Action doxycycline hyclate 100 mg tablet 100 mg PO BID 7 Days Qty: 14 0RF benzonatate 100 mg capsule 100 mg PO TID PRN (Reason: cough) Qty: 14 0RF naproxen 500 mg tablet 500 mg PO BID PRN (Reason: pain) Qty: 20 0RF methocarbamol 750 mg tablet 750 mg PO TID PRN (Reason: muscle spasm) Qty: 20 0RF tamsulosin [Flomax] 0.4 mg capsule 0.4 mg PO DAILY Qty: 7 0RF tramadol 50 mg tablet 50 mg PO TID PRN (Reason: severe pain (scale score 7-10)) Qty: 12 0RF ondansetron 4 mg tablet,disintegrating 4 mg PO Q8H PRN (Reason: nausea and vomiting) Qty: 20 0RF levofloxacin 750 mg tablet 750 mg PO DAILY 5 Days Qty: 5 0RF levofloxacin 500 mg tablet 500 mg PO DAILY 7 Days Qty: 7 0RF Interventions: ED Discharge Assessment Last Done: 04/28/24 12:47 Discharge Date/Time: 04/28/24 12:47 Print Language: Malay
[2024-04-28] MEDS: Doxycycline Monohydrate 100 MG CAPSULE PO (12:45)
[2024-04-28 12:47] VITALS: BP 167/100; PULSE 91; RESP 18; TEMP 36.5; O2SAT 97
== END 2024-04-28 12:47 | disposition home or self-care (01) ==
PROVIDERS: Emergency Provider Emergency Medicine
DX: J01.00 Acute maxillary sinusitis, unspecified (principal); R51.9 Headache, unspecified; H92.02 Otalgia, left ear
CPT/HCPCS: 36415; 80048; 85025; 99283